=== PATIENT | male | born 1975 | race African-American/Black ===

== ENCOUNTER 2016-08-24 20:36 | Emergency (ER) | payer MEDICAID, OTHER ==
[~2016-08-24] VITALS: Ht 182.9 cm; Wt 81.6 kg
[~2016-08-24 20:36] MED LIST: KEFLEX500 MG ORAL
[2016-08-24] MEDS ORDERED: PrednisoLONE 15mg/5ml Syrup ORAL ONE (21:15)
[2016-08-24] MEDS ORDERED: Albuterol ud Inhalation HHN ONE (21:15)
[2016-08-24] MEDS ORDERED: Ipratropium 0.02% Inh Soln 2.5ml UD HHN ONE (21:15)
[2016-08-24] MEDS ORDERED: AEROCHAMBER1 EACH MC (22:02)
[2016-08-24] MEDS ORDERED: PREDNISOLO15 MG/5 M1 ORAL (22:02)
[2016-08-24] MEDS ORDERED: AMOXICILLI250 MG/5 M ORAL (22:02)
[2016-08-24 22:10] VITALS: BP 121/74
[2016-08-24 22:15] VITALS: BP 121/74
--- NOTE | 2016-08-25 04:43 | Emergency Room Report ---
History of Present Illness General Chief Complaint: Dyspnea/Respdistress Source: Family Member Present Illness HPI 40-year-old male presents ED for evaluation. Sister at bedside states that patient has been having shortness of breath starting tonight. 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 Patient noted to have chronic respiratory failure. Starting tonight sister noticed that patient was having difficulty breathing. He appears congested. Runny nose. No cough. No fevers or chills. Upon arrival patient showing no signs of distress. No other aggravating relieving factors. No other associated symptoms Allergies: Coded Allergies: NO KNOWN DRUG ALLERGIES (Unverified Allergy, Unknown, 12/15/13) Patient History Past Medical History: other - traumatic brain injury Past Surgical History: none Pertinent Family History: none Social History: Denies: alcohol use, drug use, smoking Immunizations: UTD Reviewed Nursing Documentation: PMH: Agreed, PSxH: Agreed Nursing Documentation-PMH Hx Cardiac Problems: No - traumatic brain injury 2016 Hx Hypertension: No Hx Pacemaker: No Hx Asthma: No Hx COPD: No Hx Diabetes: No Hx Cancer: No Hx Gastrointestinal Problems: No - elevated liver enzymes Hx Dialysis: No Hx Neurological Problems: No Hx Cerebrovascular Accident: No Hx Seizures: Yes Review of Systems All Other Systems: limited Physical Exam Vital Signs Date Time Temp Pulse Resp B/P Pulse Ox O2 Delivery O2 Flow Rate FiO2 08/24/16 20:54 98.4 76 16 90 Room Air Sp02 EP Interpretation: reviewed, normal General Appearance: no apparent distress, alert, GCS 15, non-toxic Head: normocephalic Eyes: bilateral eye PERRL, bilateral eye normal inspection ENT: normal ENT inspection Neck: normal inspection Respiratory: wheezing Cardiovascular #1: regular rate, rhythm, no edema Gastrointestinal: normal bowel sounds, non tender, soft, non-distended, no guarding, no rebound Rectal: deferred Genitourinary: no CVA tenderness Musculoskeletal: back normal Neurologic: other - cognitive delay Psychiatric: other - cognitive delay Skin: normal inspection Lymphatic: normal inspection Medical Decision Making Diagnostic Impression: Primary Impression: Atypical pneumonia Additional Impression: Chronic respiratory failure Qualified Codes: J96.10 - Chronic respiratory failure, unspecified whether with hypoxia or hypercapnia ER Course Hospital Course 40-year-old male presents with difficulty breathing. History of chronic respiratory failure. History of traumatic brain injury Differential diagnoses include: URI, bronchitis, asthma/COPD, pneumonia Clinical course Patient placed on stretcher. After initial history and physical I ordered prelone and nebulizer treatment. Chest x-ray shows no acute infiltrate Upon reassessment patient's breathing is improved. O2 saturations improved. Sister states patient was bedding should like to take him home Given patient's history of chronic respiratory failure we will treat with antibiotic Diagnosis - atypical pneumonia, chronic respiratory failure Stable and discharged home with prescriptions for Rx Prelone, amoxicillin, albuterol. Instructed to followup with PMD. Return to ED if symptoms recur or worsen Chest X-Ray Diagnostic Results Chest X-Ray Diagnostic Results : Chest X-Ray Ordered: Yes # of Views/Limited/Complete: 1 View Indication: Shortness of Breath EP Interpretation: Yes Interpretation: no consolidation, no effusion, no pneumothorax, no acute cardiopulmonary disease Impression: No acute disease Interpreting ER Provider: Electronically signed by Jamel Dowd MD Last Vital Signs Date Time Temp Pulse Resp B/P Pulse Ox O2 Delivery O2 Flow Rate FiO2 08/24/16 21:21 70 18 100 Room Air 08/24/16 21:00 98.4 Status: improved Disposition: HOME, SELF-CARE Condition: Stable Scripts Inhaler, Assist Devices (AEROCHAMBER) 1 Each Spacer 1 EACH MC, #1 Prov: JAMEL DOWD M.D. 08/24/16 Amoxicillin* (AMOXICILLIN*) 250 Mg/5 Ml Susp.recon 500 MG ORAL EVERY 8 HOURS for 7 Days, #150 ML Prov: JAMEL DOWD M.D. 08/24/16 Prednisolone* (PRELONE*) 15 Mg/5 Ml Solution 40 MG ORAL DAILY for 5 Days, ML Prov: JAMEL DOWD M.D. 08/24/16 Referrals: [facility] (PCP) Patient Instructions: Chronic Respiratory Failure JAMEL DOWD M.D. Aug 25, 2016 04:43
--- NOTE | 2016-08-25 11:30 | Diagnostic Imaging Report ---
Indication: Cough Comparison: None A single view chest radiograph was obtained. Findings: Cardiomediastinal appearance is within normal limits for age. Pulmonary vascularity is appropriate. The diaphragmatic contour is smooth and costophrenic angles are sharp. No pleural effusions are identified. The bones are unremarkable. Spinal rods are noted within the lower thoracic and lumbar spine. Impression: No acute findings
== END 2016-08-24 22:15 | disposition home or self-care (01) ==
LOC: EMR 21:14
DX: J18.9 Pneumonia, unspecified organism (principal); J96.10 Chronic respiratory failure, unspecified whether with hypoxia or hypercapnia; Z87.820 Personal history of traumatic brain injury
CPT/HCPCS: 71010; 94640; 94664; 99284